=== PATIENT | male | born 1965 | race Caucasian/White ===

== ENCOUNTER → 2019-06-23 17:14 | Outpatient (CLI) | payer OTHER, SELFPAY | PROVIDERS: Family Provider Internal Medicine; PCP Internal Medicine; Visit Provider Physician Assistant | DX: J02.9 Acute pharyngitis, unspecified (principal) | CPT/HCPCS: 87070 ==

== ENCOUNTER → 2021-10-18 09:26 | Outpatient (CLI) | payer OTHER, SELFPAY ==
[2021-10-18 10:54] LABS: Alanine Aminotransferase 28 IU/L (<50); Albumin 4.1 g/dL (3.5-5.0); Albumin Globulin Ratio 1.7 (1.0-2.8); Alkaline Phosphatase 42 U/L (38-126); Aspartate Aminotransferase 28 IU/L (17-59); BUN Creatinine Ratio 13.3 (6-22); Bilirubin Total 1.1 mg/dL (0.2-1.3); Blood Urea Nitrogen 12 mg/dL (9-20); Carbon Dioxide 30 mmol/L (22-32); Chloride 103 mmol/L (98-107); Cholesterol 184 mg/dL (140-199); Estimated Glomerular Filt Rate > 60 mL/min (>60); Globulin 2.4 g/dL (1.7-4.1); Glucose 97 mg/dL (70-100); HDL Cholesterol 51 mg/dL (40-60); HEMOLYSIS < 15 (0-50); LDL Cholesterol Calculated 123 mg/dL (<100); Potassium 4.1 mmol/L (3.4-5.1); Sodium 140 mmol/L (137-145); Total Protein 6.5 g/dL (6.3-8.2); Triglycerides 48 mg/dL (35-150)
== END ==
PROVIDERS: Family Provider Internal Medicine; PCP Internal Medicine; Referring Provider Internal Medicine; Visit Provider Internal Medicine
DX: E78.2 Mixed hyperlipidemia (principal); F33.42 Major depressive disorder, recurrent, in full remission; I10 Essential (primary) hypertension
CPT/HCPCS: 36415; 80053; 80061

== ENCOUNTER → 2021-10-24 16:13 | Outpatient (CLI) | payer OTHER, SELFPAY ==
[2021-10-25 03:34] LABS: Prostate Specific Antigen Scrn 0.667 ng/mL (0.1-4.0)
== END ==
PROVIDERS: Family Provider Internal Medicine; PCP Internal Medicine; Referring Provider Internal Medicine; Visit Provider Internal Medicine
DX: Z12.5 Encounter for screening for malignant neoplasm of prostate (principal)
CPT/HCPCS: G0103

== ENCOUNTER → 2023-03-20 07:33 | Outpatient (CLI) | payer OTHER, SELFPAY ==
[2023-03-20 08:31] LABS: Alanine Aminotransferase 30 IU/L (<50); Albumin 3.8 g/dL (3.5-5.0); Albumin Globulin Ratio 1.4 (1.0-2.8); Alkaline Phosphatase 46 U/L (38-126); Aspartate Aminotransferase 33 IU/L (17-59); BUN Creatinine Ratio 11.1 (6-22); Blood Urea Nitrogen 10 mg/dL (9-20); Calcium 9.3 mg/dL (8.4-10.2); Carbon Dioxide 30 mmol/L (22-32); Chloride 103 mmol/L (98-107); Cholesterol 209 mg/dL (140-199); Estimated Glomerular Filt Rate > 60 mL/min (>60); Globulin 2.8 g/dL (1.7-4.1); Glucose 101 mg/dL (70-100); HDL Cholesterol 52 mg/dL (40-60); HEMOLYSIS < 15 (0-50); LDL Cholesterol Calculated 145 mg/dL (<100); Potassium 4.1 mmol/L (3.4-5.1); Sodium 137 mmol/L (137-145); Total Protein 6.6 g/dL (6.3-8.2); Triglycerides 62 mg/dL (35-150)
[2023-03-20 09:00] LABS: Prostate Specific Antigen Scrn 0.661 ng/mL (0.1-4.0)
== END ==
PROVIDERS: Family Provider Internal Medicine; PCP Internal Medicine; Referring Provider Internal Medicine; Visit Provider Internal Medicine
DX: I10 Essential (primary) hypertension (principal); E78.2 Mixed hyperlipidemia; Z12.5 Encounter for screening for malignant neoplasm of prostate
CPT/HCPCS: 36415; 80053; 80061; G0103

== ENCOUNTER → 2024-03-24 09:10 | Outpatient (CLI) | payer OTHER, SELFPAY ==
[2024-03-24 10:58] LABS: Alanine Aminotransferase 34 IU/L (<50); Albumin 4.2 g/dL (3.5-5.0); Albumin Globulin Ratio 1.7 (1.0-2.8); Alkaline Phosphatase 50 U/L (38-126); Aspartate Aminotransferase 36 IU/L (17-59); BUN Creatinine Ratio 17.5 (6-22); Bilirubin Total 0.9 mg/dL (0.2-1.3); Blood Urea Nitrogen 18 mg/dL (9-20); Calcium 9.2 mg/dL (8.4-10.2); Carbon Dioxide 28 mmol/L (22-32); Chloride 104 mmol/L (98-107); Cholesterol 216 mg/dL (140-199); Estimated Glomerular Filt Rate > 60 mL/min (>60); Globulin 2.5 g/dL (1.7-4.1); Glucose 96 mg/dL (80-110); HDL Cholesterol 66 mg/dL (40-60); HEMOLYSIS < 15 (0-50); LDL Cholesterol Calculated 138 mg/dL (<100); Potassium 4.4 mmol/L (3.4-5.1); Sodium 139 mmol/L (137-145); Total Protein 6.7 g/dL (6.3-8.2); Triglycerides 61 mg/dL (35-150)
[2024-03-24 11:26] LABS: Prostate Specific Antigen Scrn 0.904 ng/mL (0.1-4.0)
== END ==
PROVIDERS: Family Provider Internal Medicine; PCP Internal Medicine; Referring Provider Internal Medicine; Visit Provider Internal Medicine
DX: I10 Essential (primary) hypertension (principal); E78.2 Mixed hyperlipidemia; Z12.5 Encounter for screening for malignant neoplasm of prostate
CPT/HCPCS: 36415; 80053; 80061; G0103

== ENCOUNTER 2024-04-08 12:44 | Day surgery (SDC) | payer OTHER, SELFPAY ==
[2024-04-08 13:07] VITALS: BP 170/85; PULSE 72; RESP 16; TEMP 36.2; O2SAT 98
--- NOTE | 2024-04-08 13:27 | PM.HP.1 ---
History of Present Illness History of Present Illness Date Patient Seen: 04/08/24 Time Patient Seen: 13:28 Chief complaint: Screening Colonoscopy Narrative: 59-year-old white male presents for 10 year interval screening colonoscopy. He has been experiencing some changes in bowel habits causing bleeding hemorrhoids. [facility] Medical History Essential hypertension Recurrent major depression in complete remission (11/01/10) Mixed hyperlipidemia (11/01/10) Family History Father Prostate cancer Brother Prostate cancer Social History Smoking Status: Never smoker Meds Home Medications and Allergies Home Medications Medication Instructions Recorded Confirmed Type rosuvastatin 40 mg tablet (Crestor) 40 mg PO QDAY #90 tabs 03/01/24 04/08/24 Rx lisinopril 40 mg tablet 40 mg PO DAILY #90 tabs 03/28/24 04/08/24 Rx terbinafine HCl 250 mg tablet 250 mg PO DAILY 03/28/24 04/08/24 History Allergies Allergy/AdvReac Type Severity Reaction Status Date / Time No Known Allergies Allergy Uncoded 03/28/24 15:06 Review of Systems Review of Systems ROS: Yes All systems reviewed with the patient and are negative except as otherwise documented Exam Vital Signs (past 8 hours): - 04/08/24 13:07 Temperature 97.2 F L Pulse Rate 72 Respiratory Rate 16 Blood Pressure 170/85 H Pulse Oximetry 98 Oxygen Delivery Method Room Air Oxygen Delivery Method Room Air Narrative Exam Narrative: Gen: NAD, sitting comfortably in bed, appears well HEENT: Sclera are anicteric, head is normocephalic and atraumatic, trachea is midline. CV: RRR, no JVD Resp: clear to auscultation bilaterally, equal chest wall movement bilaterally Abd: soft, nontender, normoactive bowel sounds Ext: no edema, full range of motion Neuro: Cranial nerves II-XII grossly intact, no focal deficits Skin: No erythema or ecchymosis Assessment & Plan Assessment and plan (1) Colon cancer screening: Status: Acute (2) Internal bleeding hemorrhoids: Status: Acute Assessment & Plan narrative: Patient presents for colonoscopy Risks, benefits, alternatives to colonoscopy explained, including but not limited to bowel perforation or other serious complication requiring surgery at less than 1 in 5000 colonoscopies, abdominal pain, cramping or bleeding and less than 1% of colonoscopies, and the chances that we find a diagnosis that would require further intervention of about 2%. Patient agrees to proceed. Time-Based Coding :: [TOTAL MINUTES] spent with patient and on the chart (including review of chart, obtaining history, exam, reviewing outside data, placing orders, documenting exam and treatment plan, and counseling patient) on [DATE].
--- NOTE | 2024-04-08 13:52 | PM.OP.COLON ---
Operative Date/Time/Diagnoses Date of procedure: 04/08/24 Time of procedure: 13:52 Pre-op diagnosis: Colon screening Post-op diagnosis: other (Internal hemorrhoids) Procedure & Clinicians Study performed: Colonoscopy Same procedure as scheduled: Yes Indications: Colon screening Surgeon: Jonas Galan Procedure Notes SCOAP/Timeout: Performed Procedure in detail: Time-out was performed. Mac was induced. Patient was placed in left lateral decubitus position. The perineum was inspected without any gross abnormality. Lubricated pediatric colonoscope was inserted and advanced to the cecum. The terminal ileum was intubated. The colonoscope was withdrawn slowly inspecting the circumference of the colon. Very small polyps may have been missed, prep quality was adequate. Retroflexed view of the rectum showed 1 large, prolapsed nonbleeding internal hemorrhoids. The scope was withdrawn the patient was taken to PACU in good condition. Scope withdrawal time: 7 Sedation minutes: 13 Findings: internal hemorrhoids Specimen(s): none sent Complications: none Post-procedure Recommendations: Colonoscopy in 10 years Plan for aftercare: home Follow up: as needed
[2024-04-08 13:57] VITALS: BP 100/33; PULSE 68; RESP 16; TEMP 36.5; O2SAT 95
[2024-04-08 14:02] VITALS: BP 103/51; PULSE 73; RESP 10; O2SAT 96
[2024-04-08 14:06] VITALS: BP 115/51; PULSE 74; RESP 15; TEMP 37.1; O2SAT 94
[2024-04-08 14:26] VITALS: BP 100/74; PULSE 78; RESP 16; TEMP 36.8; O2SAT 98
== END 2024-04-08 14:30 | disposition home or self-care (01) ==
PROVIDERS: Family Provider Internal Medicine; PCP Internal Medicine; Referring Provider Surgery; Visit Provider Surgery
PROC: 0DJD8ZZ Inspection of Lower Intestinal Tract, Via Natural or Artificial Opening Endoscopic (ICD-10-PCS; CPT 45378; principal; 2024-04-08 13:45)
DX: Z12.11 Encounter for screening for malignant neoplasm of colon (principal); K64.8 Other hemorrhoids
CPT/HCPCS: 45378; J2704

== ENCOUNTER → 2024-08-09 15:41 | Outpatient (CLI) | payer OTHER, SELFPAY ==
--- NOTE | 2024-08-09 15:42 | DI.US.S_ITS ---
PROCEDURE: US SCROTUM INDICATIONS: scrotal mass TECHNIQUE: Real-time scanning was performed of the scrotum and testicles, with image documentation. Color and pulse Doppler interrogation was performed of both testicles. COMPARISON: None. FINDINGS: Right: Testicle is normal in size at 4.2 x 2.4 x 3.4 cm, and homogenous in echotexture. Epididymis is normal in overall size and morphology. No varicoceles. Overlying scrotal skin is normal in thickness. Moderate-sized hydrocele with mobile echogenic debris. Left: Testicle is normal in size at 4.2 x 3.1 x 2.4 cm, and homogeneous in echotexture. Epididymis is normal in overall size and morphology. No varicoceles. Overlying scrotal skin is normal in thickness. Moderate-sized hydrocele with mobile echogenic debris. Doppler: Color and pulse Doppler demonstrate normal and symmetric arterial flow in both testicles. IMPRESSION: Normal sonographic evaluation of the bilateral testicles without evidence for torsion. No focal mass lesions identified. Moderate-sized bilateral hydroceles with mobile echogenic debris. This is likely reactive in etiology and may be related to an infectious or inflammatory process. Recommend clinical correlation. Dictated by: Ercik Lezama M.D. on 08/10/2024 at 14:01 Approved by: Erick Lezama M.D. on 08/10/2024 at 14:02
== END ==
PROVIDERS: Family Provider Internal Medicine; PCP Family Medicine; Referring Provider Internal Medicine; Visit Provider Internal Medicine
DX: N50.89 Other specified disorders of the male genital organs (principal); N43.3 Hydrocele, unspecified
CPT/HCPCS: 76870; 93975

== ENCOUNTER → 2025-03-07 08:20 | Outpatient (CLI) | payer OTHER, SELFPAY ==
--- NOTE | 2025-03-07 08:21 | DI.NM.S_ITS ---
PROCEDURE: NM EXERCISE TREADMILL NON NUC COMPARISON: None. INDICATIONS: Chest pain FINDINGS: Patient exercised per the standard Gonzalo protocol. Total exercise time was 12 minutes and 0 seconds. Test was terminated secondary to fatigue. Maximum heart rate attained is 159 bpm which is 100% of maximum predicted heart rate. Maximum blood pressure was 210/102[place] [address]. JUSTIN -36%. 12.6 METS. No ischemic changes noted. No arrhythmias present. Normal heart rate but hypertensive response to exercise present. Mild 2 out of 10 chest pain voiced at approximately 4 minutes and 10 seconds into exercise but chest pains decreased with continued exercise. IMPRESSION: 1. Equivocal exercise treadmill stress test for ischemia due to presence of exercise-induced chest pains without ischemic changes. 2. Very good exercise tolerance. 3. Hypertensive response to exercise. 4. Overall a low risk exercise treadmill stress test due to lack of ischemic changes and very good exercise tolerance. Dictated by: Abdelrahman Gerardo M.D. on 03/07/2025 at 16:40 Approved by: Abdelrahman Gerardo M.D. on 03/07/2025 at 16:43
== END ==
PROVIDERS: PCP Family Medicine; Referring Provider Family Medicine; Visit Provider Family Medicine
DX: I47.10 Supraventricular tachycardia, unspecified (principal); R07.9 Chest pain, unspecified; R03.0 Elevated blood-pressure reading, without diagnosis of hypertension; Z82.49 Family history of ischemic heart disease and other diseases of the circulatory system
CPT/HCPCS: 93017

== ENCOUNTER → 2025-03-28 13:42 | Outpatient (CLI) | payer OTHER, SELFPAY ==
--- NOTE | 2025-03-28 13:43 | DI.ECHO.S_ITS ---
[place] [facility]+ [facility] : : [id number] : [place] : : [id number] : : Phone: [phone] Echocardiogram Report + + :Name: JAY NICHOLAS Study Date: 03/28/2025 Height: 70 in : :[facility] ReadingLocation: Weight: 190 lb : : Gender: Male BSA: 2.0 m2 : :: 1965 Age: 60 yrs BP: 170/90 mmHg: :Reason For Study: Chest pain : :Ordering Physician: JENNY, : :MARIA FERNANDA Faye Performed By: Juan R Guzman : :Referring: MARIA FERNANDA ALVARADO : + + Interpretation Summary The ejection fraction is estimated to be 60-65%. Normal diastolic function. The right ventricle is normal in size and function. There is mild tricuspid regurgitation. The right ventricular systolic pressure is estimated to be at least 32 mmHg based on an estimated right atrial pressure of 3 mm Hg. The ascending aorta is mildly enlarged. Procedure: A two-dimensional transthoracic echocardiogram with color flow and Doppler was performed. The study quality was technically adequate. There is no prior echocardiogram noted for this patient. The patient was in normal sinus rhythm during the exam. Left Ventricle: The left ventricle is normal in size and wall thickness. Left ventricular systolic function is normal. The ejection fraction is estimated to be 60-65%. There are no focal wall motion abnormalities. Normal diastolic function. Right Ventricle: The right ventricle is normal in size and function. Atria: The left atrial size is normal. Right atrial size is normal. There is no Doppler evidence for an interatrial shunt. Mitral Valve: The mitral valve leaflets appear to open well. There is no mitral valve stenosis. There is trace mitral regurgitation. Aortic Valve: The aortic valve is trileaflet. The aortic valve opens well. There is no aortic valve stenosis. No aortic regurgitation is present. Tricuspid Valve: The tricuspid valve leaflets are thin and pliable. There is mild tricuspid regurgitation. The right ventricular systolic pressure is estimated to be at least 32 mmHg based on an estimated right atrial pressure of 3 mm Hg. Pulmonic Valve: The pulmonic valve is not well seen, but is grossly normal. There is trace pulmonic regurgitation. Great Vessels: The aortic root is normal size. Based on patients BSA of 2.0 m2, the proximal ascending aorta is dilated with a max diameter of 3.9cm. The ascending aorta is mildly enlarged. The pulmonary artery is normal size. The IVC is of normal diameter and collapses greater than 50% with a sniff. This suggests a low right atrial pressure of 3 mm Hg. Pericardium/ Pleura There is no pericardial effusion. MMode/2D Measurements & Calculations LVIDd: 5.5 cm LVOT diam: 2.2 cm LVIDs: 3.4 cm Ao root diam: 3.6 cm FS: 38.3 % asc Aorta Diam: 3.9 cm IVSd: 0.99 cm Ao Arch Diam (Prox Trans): 2.4 cm LVPWd: 1.0 cm LV vang. diameter/BSA (cm/m^2): 2.7 LV sys. diameter/BSA (cm/m^2): 1.7 LA A2 area: 21.2 cm2 RA long axis: 5.2 cm LA A4 area: 19.1 cm2 RA area: 19.1 cm2 LA length (vol): 5.4 cm RA vol: 60.3 ml LA vol: 64.1 ml RA : 29.5 ml/m2 LA vol index: 31.4 ml/m2 IVC diam: 1.7 cm RVD1 (basal): 3.6 cm RVD2 (mid): 3.4 cm TAPSE: 2.9 cm Doppler Measurements & Calculations Ao V2 max: 129.5 cm/sec LVOT Max Isidoro: 128.2 cm/sec Ao V2 mean: 90.4 cm/sec LV V1 max P.6 mmHg Ao max P.7 mmHg LV V1 VTI: 27.2 cm Ao mean P.6 mmHg MARIO(I,D): 4.0 cm2 Ao V2 VTI: 25.8 cm MARIO(V,D): 3.8 cm2 sev ratio: 1.1 MARIO indexed to BSA (cm^2/m^2): 2.0 MV E max isidoro: 65.3 cm/sec TR max isidoro: 251.3 cm/sec MV A max isidoro: 82.2 cm/sec TR max P.3 mmHg MV E/A: 0.79 PA V2 max: 92.3 cm/sec Med Peak E' Isidoro: 11.0 cm/sec PA V2 mean: 72.4 cm/sec E/E' med: 6.0 PA mean P.2 mmHg Lat Peak E' Isidoro: 9.2 cm/sec PA pr(Accel): 28.9 mmHg E/E' lat: 7.1 E/e' average: 6.5 MV dec time: 0.16 sec SV(LVOT): 103.6 ml Qp/Qs (V,Ao): 1.0/4.9 Qp/Qs (V,LVOT): 1.0/1.8 Reading Physician:07:16 PM
== END ==
LOC: ECHO 13:42
PROVIDERS: PCP Family Medicine; Referring Provider Family Medicine; Visit Provider Family Medicine
DX: I07.1 Rheumatic tricuspid insufficiency (principal); I47.10 Supraventricular tachycardia, unspecified; R07.9 Chest pain, unspecified; Z82.49 Family history of ischemic heart disease and other diseases of the circulatory system
CPT/HCPCS: 93306